=== PATIENT | female | born 1945 | race Caucasian/White ===

== ENCOUNTER → 2021-10-20 08:07 | Outpatient (CLI) | payer MEDICARE, OTHER, SELFPAY ==
[2021-10-20 10:40] LABS: Cholesterol 214 mg/dL (140-199); HDL Cholesterol 50 mg/dL (40-60); LDL Cholesterol Calculated 129 mg/dL (<100); Triglycerides 177 mg/dL (35-150)
[2021-10-21 08:38] LABS: Calcium 10.6 mg/dL (8.7-10.3); Parathyroid Hormone, Intact 80 pg/mL (15-65)
== END ==
PROVIDERS: Referring Provider Nurse Practitioner; Visit Provider Nurse Practitioner
DX: E78.2 Mixed hyperlipidemia (principal); E83.52 Hypercalcemia
CPT/HCPCS: 36415; 80061; 82310; 83970